=== PATIENT | male | born 1990 | race Caucasian/White ===

== ENCOUNTER 2018-04-12 18:03 | Emergency (ER) | payer OTHER ==
[2018-04-12 18:57] VITALS: BP 127/87
--- NOTE | 2018-04-12 20:02 | UC ---
Laceration HPI - HPI Summary HPI Summary: 27 y/o male presents to the urgent care c/o laceration of his LF 5th finger s/p holding a glass tube and glass shattered around 1700PM. Pt states glass broke in big pieces. He can move finger w/o any difficulty and and bleeding stopped w / pressure. Pt can't recall when was last Tetanus vaccine. Pt denies numbness or tingling sensation over the finger, hand pain, SOB, chest pain, abdominal pain N/V/D. Pain is 2/10 - History Of Current Complaint Chief Complaint: UCLaceration Stated Complaint: FINGER LACERATION Time Seen by Provider: 04/12/18 20:00 Hx Obtained From: Patient Laceration Location: Finger - left middle finger Mechanism Of Injury: Sharp Trauma Onset/Duration: Sudden Onset, Lasting Hours - 3hrs ago Severity: Mild Pain Intensity: 2 Pain Scale Used: 0-10 Numeric Aggravating Factors: Movement, Other: - touch - Allergies/Home Medications Allergies/Adverse Reactions: Allergies Allergy/AdvReac Type Severity Reaction Status Date / Time amoxicillin Allergy Itching Verified 04/12/18 18:52 PMH/Surg Hx/FS Hx/Imm Hx Previously Healthy: Yes - Pt denies PMHX - Surgical History Surgical History: Yes Surgery Procedure, Year, and Place: WISDOM TEETH 2009 - Family History Known Family History: Positive: None - Pt denies FMHX - Social History Occupation: Employed Full-time Lives: With Family Alcohol Use: Rare Substance Use Type: None Smoking Status (MU): Never Smoked Tobacco - Immunization History Most Recent Tetanus Shot: UNSURE Hx Tetanus, Diphtheria Vaccination: No - can't recall when was the last time Review of Systems Constitutional: Negative Skin: Other - laceraration w/ glass of the left little finger Eyes: Negative ENT: Negative Respiratory: Negative Cardiovascular: Negative Gastrointestinal: Negative Genitourinary: Negative Motor: Negative Neurovascular: Negative Musculoskeletal: Other: - left little finger pain Neurological: Negative Psychological: Negative Is Patient Immunocompromised?: No All Other Systems Reviewed And Are Negative: Yes Physical Exam - Summary Physical Exam Summary: Vital Signs Reviewed: Yes General: well developed, well nourished male sitting in the examining table w/o any apparent distress Eye Exam: Normal Eyes: Positive: Conjunctiva Clear - PERRLA, EOMI, fundi grossly normal ENT: Positive: Normal ENT inspection, Hearing grossly normal, Pharynx normal, TMs normal Neck: Positive: Supple, Nontender, No Lymphadenopathy Respiratory: Positive: Chest non-tender, Lungs clear, Normal breath sounds, No respiratory distress Cardiovascular: Positive: RRR, No Murmur, Pulses Normal, Brisk Capillary Refill Abdomen Description: Positive: Nontender, No Organomegaly, Soft. Negative: CVA Tenderness (R), CVA Tenderness (L) Bowel Sounds: Positive: Present Musculoskeletal: Positive: Strength Intact, ROM Intact, No Edema Neurological: Positive: Alert, Muscle Tone Normal Psychological Exam: Normal Skin: Positive:Ventral side of the left 5th distal phalanxe with a linear superficial laceration about 1.0 cm in size,non bleeding, no foreign body observed. mild tenderness to palpation, FROM of left 5th phalanx and left hand, sensation intact, capillary refill brisk, and pulses WNL. Triage Information Reviewed: Yes Vital Signs: Initial Vital Signs Temp 98.4 F 04/12/18 18:52 Pulse 80 04/12/18 18:52 Resp 18 04/12/18 18:52 BP 127/87 04/12/18 18:52 Pulse Ox 100 04/12/18 18:52 Laceration Repair - Laceration Repair 1 Description: Linear - superficial Laceration Size After Repair: Length (cm) - 1.0cm Modified For Repair: No Type Injection: Digital - 1ml on each side Anesthesia Used: 1.0% Lido Cleansing Completed Via Routine Prep: Yes Irrigation With Pressure Irrigation Device: Yes Closure Material: Sutures - 3 Closure Method: Single Layer Suture Of: Skin, SQ Suture Type: Nylon - 5.0 Laceration Course/Dx - Course/Dx Course Of Treatment: 27 y/o male presents to the urgent care c/o laceration of his LF 5th finger s/p holding a glass tube and glass shattered around 1700PM. Pt states glass broke in big pieces. He can move finger w/o any difficulty and and bleeding stopped w/ pressure. Pt can't recall when was last Tetanus vaccine. Pt denies numbness or tingling sensation over the finger, hand pain, SOB, chest pain, abdominal pain N/V/D.Hx obtained. Pt w/ a superfical linear laceration in the distal ventral side of left 5th phalanx about 1.0 cm in size, FROM of finger on examination. LACERATION PROCEDURE NOTE: . Copious irrigation was done with saline by the nurse and the wound explored. There was no FB or deep structure injury noted. Procedure was explained and consent obtained, Timeout performed. The wound was anesthetized by digital block with 2 mL of 1 % lido with good anesthesia. Pt neurovacular intact after digital block. Sterile drape and prep were done. There were 3 sutures with 5.0 nylon type of suture. The length of the wound after closure was 1.0cm. No debridement done. Wound was covered bacitracin with sterile non adherent dressing. The Pt tolerated the procedure well without adverse effects. Neurovascular intact and FROM. Tdap ordered and applied by nurse. Pt advised to f/u suture removal in 10 -12 days and if any signs of infection develop to immediately return to the urgent care of PCP for further management and treatment. Pt understood and agreed and left the clinic ambulating A&Ox3. - Differential Dx - Laceration/Wound Differental Diagnoses: Avulsion, Laceration, Puncture Wound, Tendon Laceration Provider Diagnoses: 1- Laceration repair of the left 5th phalanx. 2- Left 5th phalanx s/p laceration. Discharge - Sign-Out/Discharge Documenting (check all that apply): Patient Departure - D/c home All imaging exams completed and their final reports reviewed: No Studies - Discharge Plan Condition: Stable Disposition: HOME Prescriptions: Bacitracin OINTMENT* 1 applic TOPICAL BID #1 tube Patient Education Materials: Care For Your Stitches (ED), Finger Laceration (ED ) Referrals: [facility] [Outside] - 1 Week Additional Instructions: 1-Please apply topical antibiotic over the wound. Keep wound clean and dry 2- F/u suture removal in 10-12 days days w/ your PCP or here at the urgent care. 3-Take Ibuprofen or Tylenol PO q6-8hrs prn for pain or swelling. 4- If you develop fever or redness around your finger please return to the Urgent care. - Billing Disposition and Condition Condition: STABLE Disposition: Home
[2018-04-12] MEDS ORDERED: Tetan/Diph/Pertus SYR(Tdap)* 0.5 ML SYR(BOOSTRIX) use SYR IM ONE (20:10)
[2018-04-12] MEDS ORDERED: Lidocaine 1%* 5 ML VIAL INJ ONE (20:12)
== END 2018-04-12 21:24 | disposition home or self-care (01) ==
LOC: UCEAST 18:03
DX: S61.217A Laceration without foreign body of left little finger without damage to nail, initial encounter (principal); W25.XXXA Contact with sharp glass, initial encounter; Y93.9 Activity, unspecified; Y92.9 Unspecified place or not applicable; Z23 Encounter for immunization; Z88.0 Allergy status to penicillin
CPT/HCPCS: 12001; 90715; 99202; G0463